=== PATIENT | male | born 2000 | race Two or more races ===

== ENCOUNTER 2025-03-12 13:19 | Emergency (ER) | payer MEDICAID, OTHER ==
[~2025-03-12] VITALS: Ht 180.3 cm; Wt 101.2 kg
[2025-03-12 13:31] VITALS: BP 136/83; TEMP 98.2
[2025-03-12 14:37] VITALS: O2SAT 97
== END 2025-03-12 14:37 | disposition home or self-care (01) ==
LOC: ER 13:19
DX: L05.91 Pilonidal cyst without abscess (principal); L02.31 Cutaneous abscess of buttock